=== PATIENT | female | born 1940 | race Caucasian/White ===

== ENCOUNTER 2021-09-10 11:55 | Emergency (ER) | payer MEDICARE, OTHER ==
[~2021-09-10] VITALS: Ht 175.3 cm; Wt 61.0 kg
[2021-09-10 12:01] VITALS: BP 165/100
--- NOTE | 2021-09-10 12:25 | PHYS DOC ---
Past History Past Surgical History: Cholecystectomy Additional Past Surgical Histo: AAA 2011 Alcohol Use: None General Adult EDM: Chief Complaint: MECHANICAL FALL HPI: HPI: 81-year-old female presents with low back pain. The patient had a fall 5 days ago while she was at home. She was standing in the kitchen and she turned around. She found herself falling to the floor and was unable to catch herself. She states that she did not hit anything on the way down. She landed on the fl oor. She was unable to get herself back up. She hit her head on the wall but her headache improved. She continues to have low back soreness and pain and thought she should come in for evaluation. She is not having any numbness, tingling, altered sensation of the lower extremities. Denies fever or chills. She is not on any chronic pain medication. Review of Systems: Review of Systems: Constitutional: Denies fever or chills Eyes: Denies change in visual acuity HENT: Denies nasal congestion or sore throat Respiratory: Denies cough or shortness of breath Cardiovascular: Denies chest pain or edema GI: Denies abdominal pain, nausea, vomiting, bloody stools or diarrhea : Denies dysuria Musculoskeletal: Low back pain Integument: Denies rash Neurologic: Denies headache, focal weakness or sensory changes Endocrine: Denies polyuria or polydipsia Lymphatic: Denies swollen glands Psychiatric: Denies depression or anxiety Allergies: Allergies: Allergies Coded Allergies Type Severity Reaction Last Updated Verified Cephalosporins Allergy Unknown 09/10/21 Yes cephalexin Allergy Unknown 09/10/21 Yes Uncoded Allergies Type Severity Reaction Last Updated Verified CODIENE Allergy Unknown 09/10/21 Physical Exam: PE: Constitutional: Well developed, well nourished, no acute distress, non-toxic appearance. [] HENT: Normocephalic, atraumatic, bilateral external ears normal, oropharynx moist, no oral exudates, nose normal. [] Eyes: PERRLA, EOMI, conjunctiva normal, no discharge. [] Neck: Normal range of motion, no tenderness, supple, no stridor. [] Cardiovascular:Heart rate regular rhythm, no murmur [] Lungs & Thorax: Bilateral breath sounds clear to auscultation [] Abdomen: Bowel sounds normal, soft, no tenderness, no masses, no pulsatile masses. [] Skin: Warm, dry, no erythema, no rash. [] Back: Generalized tenderness of the lumbar spine [] Extremities: No tenderness, no cyanosis, no clubbing, ROM intact, no edema. [] Neurologic: Alert and oriented X 3, normal motor function, normal sensory function, no focal deficits noted. [] Psychologic: Affect normal, judgement normal, mood normal. [] Current Patient Data: Vital Signs: Vital Signs Date Time Temp Pulse Resp B/P (MAP) Pulse Ox O2 Delivery O2 Flow Rate FiO2 09/10/21 12:01 98.5 82 165/100 (121) 96 Room Air EKG: EKG: [] Radiology/Procedures: Radiology/Procedures: [] Impressions: EXAM: Lumbar spine, 3 views. HISTORY: Fall. Pain. COMPARISON: None. FINDINGS: 3 views of the lumbar spine are obtained. There is minimal anterolisthesis of L3 on L4. There is degenerative endplate remodeling with disc space narrowing and osteophytosis at L4-L5, and to a lesser extent, L5-S1. There is facet arthropathy at these levels. 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 The excluded aneurysm sac measures approximately 7.8 cm. IMPRESSION: 1. 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 2. No acute osseous finding. 3. 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 Electronically signed by: Romi Lobo MD (09/10/2021 12:58 PM) [id number] DICTATED AND SIGNED BY: ROMI LOBO MD DATE: 09/10/21 1247 CC: CAROL FONG RYAN DO ~MTH0 0 Heart Score: C/O Chest Pain: N/A Risk Factors: Risk Factors: DM, Current or recent (<one month) smoker, HTN, HLP, family history of CAD, obesity. Risk Scores: Score 0 - 3: 2.5% MACE over next 6 weeks - Discharge Home Score 4 - 6: 20.3% MACE over next 6 weeks - Admit for Clinical Observation Score 7 - 10: 72.7% MACE over next 6 weeks - Early Invasive Strategies Course & Med Decision Making: Course & Med Decision Making Pertinent Labs and Imaging studies reviewed. (See chart for details) The patient's lumbar x-rays negative for acute findings. She does have degenerative change L4-L5. This could be some of her pain. I will approve pain medication and recommend follow-up with her primary doctor and consider physical therapy. She is stable for discharge at this time. [] Sandra Disclaimer: Sandra Disclaimer: This electronic medical record was generated, in whole or in part, using a voice recognition dictation system. Departure Departure: Impression: Primary Impression: Low back pain Qualified Codes: M54.50 - Low back pain, unspecified Disposition: HOME / SELF CARE / HOMELESS Condition: STABLE Referrals: CAROL FONG (PCP) Patient Instructions: Degenerative Disk Disease Scripts Hydrocodone/Acetaminophen (Hydrocodone-Acetamin 5-325 mg) 1 Each Tablet 1 EACH PO Q4-6HRS PRN for PAIN, #10 TAB Prov: MOMO MCDONALD DO 09/10/21 MOMO MCDONALD DO Sep 10, 2021 12:25
[2021-09-10] MEDS ORDERED: DULA1.5P SQ (12:29)
[2021-09-10] MEDS ORDERED: OMEP40CA2 PO (12:29)
[2021-09-10] MEDS ORDERED: MAGN400C PO (12:29)
[2021-09-10] MEDS ORDERED: LOPE2CAP PO (12:29)
[2021-09-10] MEDS ORDERED: FERR325C PO (12:29)
[2021-09-10] MEDS ORDERED: HYDR200T71 PO (12:29)
[2021-09-10] MEDS ORDERED: LISI-378 PO (12:29)
[2021-09-10] MEDS ORDERED: METF-154 PO (12:29)
[2021-09-10] MEDS ORDERED: SOLI10TA2 PO (12:29)
[2021-09-10] MEDS ORDERED: CYAN100072 PO (12:29)
[2021-09-10] MEDS ORDERED: MIRT7.5T8 PO (12:29)
[2021-09-10] MEDS ORDERED: ASPI-630 PO (12:29)
[2021-09-10] MEDS ORDERED: [UNRECOGNIZED DRUG - CODE] PO (12:29)
[2021-09-10] MEDS ORDERED: FLUO40CA9 PO (12:29)
--- NOTE | 2021-09-10 13:00 | RAD ---
EXAM: Lumbar spine, 3 views. HISTORY: Fall. Pain. COMPARISON: None. FINDINGS: 3 views of the lumbar spine are obtained. There is minimal anterolisthesis of L3 on L4. The re is degenerative endplate remodeling with disc space narrowing and osteophytosis at L4-L5, and to a lesser extent, L5-S1. There is facet arthropathy at these levels. 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 The excluded aneurysm sac measures approximately 7.8 cm. IMPRESSION: 1. 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 2. No acute osseous finding. 3. 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 Electronically signed by: Romi Lobo MD (09/10/2021 12:58 PM) [id number]
[2021-09-10] MEDS ORDERED: HYDR-2759 PO (13:19)
[2021-09-10] MEDS ORDERED: HYDROcodone/APAP 5/325MG 1 TAB TABLET PO ONE (13:30)
== END 2021-09-10 13:40 | disposition home or self-care (01) ==
LOC: ER 11:55
DX: M54.59 Other low back pain (principal); R51.9 Headache, unspecified; Z90.49 Acquired absence of other specified parts of digestive tract; Z88.1 Allergy status to other antibiotic agents
CPT/HCPCS: 72100; 99284

== ENCOUNTER 2021-09-12 11:31 | Emergency (ER) | payer MEDICARE, OTHER ==
[~2021-09-12] VITALS: Ht 175.3 cm; Wt 61.0 kg
[~2021-09-12 11:31] MED LIST: ASPI-630 PO; CYAN100072 PO; DULA1.5P SQ; FERR325C PO; FLUO40CA9 PO; HYDR-2759 PO; HYDR200T71 PO; LISI-378 PO; LOPE2CAP PO; MAGN400C PO; METF-154 PO; MIRT7.5T8 PO; OMEP40CA2 PO; SOLI10TA2 PO; [UNRECOGNIZED DRUG - CODE] PO
--- NOTE | 2021-09-12 12:48 | PHYS DOC ---
Past History Past Surgical History: Cholecystectomy Additional Past Surgical Histo: AAA 2011 (MARTHA ZENDEJAS APRN) Alcohol Use: None (MARTHA ZENDEJAS APRN) General Adult EDM: Chief Complaint: BACK PAIN OR INJURY HPI: HPI: Patient is a 81-year-old female who presents with lower back pain after a fall 1 week ago. Patient was seen in the emergency room on 09/10 and had imaging of her lower back. Images at that time were negative. Patient is stating that she is unable to get the pain under control at home and having trouble ambulating. Patient did take a hydrocodone 30 minutes prior to arrival and is denying pain at this time. No urinary retention or loss of bowel, no saddle anesthesia. Patient denies pain has gotten worse but has not improved. No other obvious injuries or complaints of pain. (MARTHA ZENDEJAS APRN) Review of Systems: Review of Systems: Constitutional: Denies fever or chills Eyes: Denies change in visual acuity HENT: Denies nasal congestion or sore throat Respiratory: Denies cough or shortness of breath Cardiovascular: Denies chest pain or edema GI: Denies abdominal pain, nausea, vomiting, bloody stools or diarrhea : Denies dysuria Musculoskeletal: Denies back pain or joint pain Integument: Denies rash Neurologic: Denies headache, focal weakness or sensory changes Endocrine: Denies polyuria or polydipsia Lymphatic: Denies swollen glands Psychiatric: Denies depression or anxiety (MARTHA ZENDEJAS APRN) Allergies: Allergies: Allergies Coded Allergies Type Severity Reaction Last Updated Verified Cephalosporins Allergy Unknown 09/10/21 Yes cephalexin Allergy Unknown 09/10/21 Yes codeine Allergy Unknown 09/10/21 Yes (MARTHA ZENDEJAS APRN) Physical Exam: PE: Constitutional: Well developed, well nourished, no acute distress, non-toxic appearance. [] HENT: Normocephalic, atraumatic, bilateral external ears normal, oropharynx moist, no oral exudates, nose normal. [] Eyes: PERRLA, EOMI, conjunctiva normal, no discharge. [] Neck: Normal range of motion, no tenderness, supple, no stridor. [] Cardiovascular:Heart rate regular rhythm, no murmur [] Lungs & Thorax: Bilateral breath sounds clear to auscultation [] Abdomen: Bowel sounds normal, soft, no tenderness, no masses, no pulsatile masses. [] Skin: Warm, dry, no erythema, no rash. [] Back: Lumbar tendernessleft side, no CVA tenderness. [] Extremities: No tenderness, no cyanosis, no clubbing, ROM intact, no edema. [] Neurologic: Alert and oriented X 3, normal motor function, normal sensory function, no focal deficits noted. [] (MARTHA ZENDEJAS APRN) Current Patient Data: Vital Signs: Vital Signs Date Time Temp Pulse Resp B/P (MAP) Pulse Ox O2 Delivery O2 Flow Rate FiO2 09/12/21 11:33 86 22 168/82 (110) 94 Room Air (MARTHA ZENDEJAS APRN) EKG: EKG: [] (MARTHA ZENDEJAS APRN) Radiology/Procedures: Radiology/Procedures: []EXAM: CT lumbar spine without IV contrast CLINICAL HISTORY:Reason: fall / Spl. Instructions: / History: COMPARISON: Lumbar spine radiograph from 09/10/2021. TECHNIQUE: Helical CT was performed through the lumbar spine. Axial, coronal and sagittal reformatted images were generated. PQRS compliance statement - One or more of the following individualized dose reduction techniques were utilized for this study: 1. Automated exposure control 2. Adjustment of the mA and/or kV according to patient size 3. Use of iterative reconstruction technique FINDINGS: Diffuse osteopenia degrading evaluation for nondisplaced fractures.. There is a age-indeterminate compression fracture of the T12 vertebral body with associated lucencies seen along the superior endplates, consistent with a acute on chronic component with 20 %vertebral body height loss. Remainder of the vertebral body heights are preserved. There is minimal anterolisthesis of L3 on L4. Redemonstrated degenerative endplate remodeling and disc space narrowing and osteophytosis most pronounced at the L4-L5 level. There is mild to moderate bilateral facet arthrosis throughout the lumbar spine as well. No high-grade central or neural foraminal narrowing is appreciated on this noncontrast exam. There is a minimally displaced fracture of the right L5 transverse process. There are bilateral sacral sufficiency fractures predominantly involving zone 2 with a transverse component at the S1-S2 level. There is a soft tissue attenuating fullness in the area of the right adrenal gland with interspersed peripheral calcifications. This may represent an age indeterminate right adrenal hemorrhage and/or postoperative seroma. 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 Remainder of the retroperitoneal structures appear unremarkable. IMPRESSION: 1. Patient is diffusely osteopenic degrading evaluation of nondisplaced fractures. There is a acute on chronic compression fracture involving the T12 vertebral body with less than 20% vertebral body height loss. In the setting of diffuse osteopenia further evaluation with MRI is recommended to evaluate for additional fractures. 2. Bilateral sacral insufficiency fractures predominantly in zone 2 with a transverse component at the S1-S2 level. 3.Mildly displaced right L5 transverse process fracture. 4. Indeterminate peripherally calcified soft tissue attenuating fullness in the area of the right adrenal gland. This may represent an age-indeterminate right adrenal hemorrhage versus postoperative seroma. Further characterization on follow-up CT or MRI with IV contrast is recommended. 5. 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 These findings were discussed with Dr. Centeno at 09/12/2021 1:54 PM (MARTHA ZENDEJAS APRN) Heart Score: C/O Chest Pain: No Risk Factors: Risk Factors: DM, Current or recent (<one month) smoker, HTN, HLP, family history of CAD, obesity. Risk Scores: Score 0 - 3: 2.5% MACE over next 6 weeks - Discharge Home Score 4 - 6: 20.3% MACE over next 6 weeks - Admit for Clinical Observation Score 7 - 10: 72.7% MACE over next 6 weeks - Early Invasive Strategies (MARTHA ZENDEJAS APRN) Course & Med Decision Making: Course & Med Decision Making Pertinent Labs and Imaging studies reviewed. (See chart for details) [] 81-year-old female presents with lower back pain after a fall 1 week ago. No cauda equina symptoms. Patient denies pain has gotten worse is just has not resolved. Patient states she is unable to ambulate without an increase in pain and does not feel the pain medication is working well. Patient did take hydrocodone 30 minutes prior to arrival and states that she has no pain at this time. Patient was seen on 09/10 and had a lumbar x-ray at that time. No acute abnormalities were found. CT of lumbar ordered to rule out acute abnormality. Patient is reporting intermittent, urinary retention. Bladder scan performed which showed 300 mls. Patient was straight cathed to obtain urine sample. CT was concerning for T12 fracture. CT shows acute on chronic compression fracture involving the T12. Consulted neurosurgery regarding patient's symptoms and CT results. JOHNSON Larsen with neurosurgery spoke with Dr. Morales who is suggesting an MRI be done today at [facility]. (MARTHA ZENDEJAS APRN) Course & Med Decision Making I was the Attending physician on the above date of service of this patient. I discussed need for further diagnostic imaging in consultation with specialist given imaging findings and urinary issues which are new findings for patient. I agree to plan of care as recommended by neurosurgeon for hospital transfer for MRI and further specialist consultation and intervention as indicated Critical Care Time This patient required critical care. Due to the fact that the patient required a significant amount of one on one physician - patient contact time, ordering and review of studies, arranging urgent treatment with development of a management plan, evaluation of patients response to treatment with frequent reassessments, and discussions with other providers this patient required 35 minutes of critical care time. Critical care time was indicated due to the inherent instability and/or potential for instability in this patient. The critical care time that is allocated to this patient is above and beyond any time spent on any other billable procedures performed on this patient. Electronically signed, Te Centeno DO (TE CENTENO DO) Sandra Disclaimer: Sandra Disclaimer: This electronic medical record was generated, in whole or in part, using a voice recognition dictation system. (MARTHA ZENDEJAS APRN) Departure Departure: Impression: Primary Impression: Fall Qualified Codes: W19.XXXA - Unspecified fall, initial encounter Disposition: 02 SHORT TERM HOSPITAL Condition: STABLE Referrals: CAROL FONG (PCP) MARTHA ZENDEJAS APRN Sep 12, 2021 12:47 TE CENTENO DO Sep 16, 2021 06:27
--- NOTE | 2021-09-12 14:09 | RAD ---
EXAM: CT lumbar spine without IV contrast CLINICAL HISTORY:Reason: fall / Spl. Instructions: / History: COMPARISON: Lumbar spine radiograph from 09/10/2021. TECHNIQUE: Helical CT was performed through the lumbar spine. Axial, coronal and sagittal reformatted images were generated. PQRS compliance statement - One or more of the following individualized dose reduction techniques wer e utilized for this study: 1. Automated exposure control 2. Adjustment of the mA and/or kV according to patient size 3. Use of iterative reconstruction technique FINDINGS: Diffuse osteopenia degrading evaluation for nondisplaced fractures.. There is a age-indeterminate com pression fracture of the T12 vertebral body with associated lucencies seen along the superior endplat es, consistent with a acute on chronic component with 20 %vertebral body height loss. Remainder of th e vertebral body heights are preserved. There is minimal anterolisthesis of L3 on L4. Redemonstrated degenerative endplate remodeling and disc space narrowing and osteophytosis most pronounced at the L4 -L5 level. There is mild to moderate bilateral facet arthrosis throughout the lumbar spine as well. N o high-grade central or neural foraminal narrowing is appreciated on this noncontrast exam. There is a minimally displaced fracture of the right L5 transverse process. There are bilateral sacra l sufficiency fractures predominantly involving zone 2 with a transverse component at the S1-S2 level . There is a soft tissue attenuating fullness in the area of the right adrenal gland with interspersed peripheral calcifications. This may represent an age indeterminate right adrenal hemorrhage and/or po stoperative seroma. 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 Remainder of the retroperitoneal structures appear unremarkable. IMPRESSION: 1. Patient is diffusely osteopenic degrading evaluation of nondisplaced fractures. There is a acute o n chronic compression fracture involving the T12 vertebral body with less than 20% vertebral body hei ght loss. In the setting of diffuse osteopenia further evaluation with MRI is recommended to evaluate for additional fractures. 2. Bilateral sacral insufficiency fractures predominantly in zone 2 with a transverse component at th e S1-S2 level. 3.Mildly displaced right L5 transverse process fracture. 4. Indeterminate peripherally calcified soft tissue attenuating fullness in the area of the right adr enal gland. This may represent an age-indeterminate right adrenal hemorrhage versus postoperative ser kinjal. Further characterization on follow-up CT or MRI with IV contrast is recommended. 5. 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 These findings were discussed with Dr. Kidd at 09/12/2021 1:54 PM Electronically signed by: Robi Aguillon DO (09/12/2021 2:06 PM) [facility]
[2021-09-12 14:16] LABS: BACTERIA,URINE 0 /HPF (0-FEW); CLARITY,URINE CLEAR; COLOR,URINE YELLOW; GLUCOSE,URINE NEG (NEG); NITRITE,URINE NEG (NEG); SQUAMOUS EPITHELIAL CELL,UR MOD /LPF; UROBILINOGEN,URINE 0.2 mg/dL (0.2 mg/dL)
[2021-09-12] MEDS ORDERED: MORPHINE SULFATE 4 MG/ML DISP.SYRIN. IV ONE ×3 (15:45→20:15)
[2021-09-12 16:47] LABS: BASO # 0.1 x10^3/uL (0.0-0.2); BASO % 1 % (0-3); EOS # 0.3 x10^3/uL (0.0-0.7); EOS % 4 % (0-3); HEMATOCRIT 27.2 % (36.0-47.0); HEMOGLOBIN 8.6 g/dL (12.0-15.5); LYMPH # 0.8 x10^3/uL (1.0-4.8); LYMPH % 12 % (24-48); MEAN CORPUSCULAR HEMOGLOBIN 26 pg (25-35); MEAN CORPUSCULAR HGB CONC 32 g/dL (31-37); MEAN CORPUSCULAR VOLUME 81 fL (79-100); MONO # 0.5 x10^3/uL (0.0-1.1); MONO % 8 % (0-9); NEUT # 5.1 x10^3uL (1.8-7.7); NEUT % 75 % (31-73); PLATELET COUNT 337 x10^3/uL (140-400); RED BLOOD COUNT 3.37 x10^6/uL (3.50-5.40); RED CELL DISTRIBUTION WIDTH 15.1 % (11.5-14.5); WHITE BLOOD COUNT 6.7 x10^3/uL (4.0-11.0)
[2021-09-12 16:56] LABS: CALCIUM 8.4 mg/dL (8.5-10.1); CREATININE 1.3 mg/dL (0.6-1.0); GFR 39.5; POTASSIUM 3.4 mmol/L (3.5-5.1)
[2021-09-12 17:02] LABS: ALBUMIN 2.7 g/dL (3.4-5.0); ALBUMIN/GLOBULIN RATIO 0.7 (1.0-1.7); TOTAL BILIRUBIN 0.2 mg/dL (0.2-1.0); TOTAL PROTEIN 6.4 g/dL (6.4-8.2)
[2021-09-12 20:30] VITALS: BP 180/84
--- NOTE | 2021-09-12 20:46 | RAD ---
Exam: CT head and cervical spine INDICATION: Fall, headache and neck TECHNIQUE: Sequential axial images through the head and cervical spine were obtained without the admi nistration of IV contrast. Exposure: One or more of the following in the visualized dose reduction techniques were utilized for this examination: 1. Automated exposure control 2. Adjustment of the MA and/or KV according to patient size 3. Use of iterative of reconstructive technique Comparisons: None FINDINGS: Head: No focal parenchymal lesion or hemorrhage is identified. There is no midline shift or sulcal effaceme nt. Moderate patchy hypodensity in the periventricular white matter. No acute vascular territory infarcti on is identified. Peterson-white distinction is preserved. The ventricular system is within normal limits without compression hydrocephalus. The basal cisterns are well maintained. The visualized portions of the paranasal sinuses and mastoid air cells are well-pneumatized. No acute fractures. Cervical spine: Vertebral body heights and alignment are well-maintained. Fracture to the cervical spine is not identified. Multilevel spondylotic change in cervical spine with degenerative disc disease greatest at C5-C6 and C6-C7. Mild bilateral facet arthropathy is noted throughout cervical spine. Visualized paraspinal soft tissues are unremarkable. IMPRESSION: 1. Moderate small vessel ischemic change, technically age indeterminate without recent prior imaging . 2. Negative CT C-spine for acute traumatic injury. Electronically signed by: Mirna Ascencio MD (09/12/2021 8:44 PM) [facility]
--- NOTE | 2021-09-12 20:53 | RAD ---
CT thoracic spine without contrast History: Reason: FALL, severe upper back pain / Spl. Instructions: / History: Axial helical images of the thoracic spine were obtained without contrast. Axial, coronal and sagitta l reconstruction was performed. Findings: The vertebral bodies are aligned. There is mild loss of stature of T12 due to impaction of the superi or endplate. Minimal retropulsion of superior endplate is seen without significant central stenosis. There is kyphosis of the mid and upper thoracic spine. Evaluation of the central canal is limited without contrast. There is no evidence of significant cent ral or neuroforaminal stenosis. Impression: Acute T12 vertebral body compression fracture. End of impression PQRS Compliance Statement: One or more of the following individualized dose reduction techniques were utilized for this examinat ion: 1. Automated exposure control 2. Adjustment of the mA and/or kV according to patient size 3. Use of iterative reconstruction technique Electronically signed by: Murtaza Cook III, MD (09/12/2021 8:50 PM) [facility]
== END 2021-09-12 20:36 | disposition short-term general hospital (02) ==
LOC: ER 11:31
DX: M54.59 Other low back pain (principal); Z20.822 Contact with and (suspected) exposure to COVID-19; Z90.49 Acquired absence of other specified parts of digestive tract; Z88.1 Allergy status to other antibiotic agents; Z88.5 Allergy status to narcotic agent; W18.39XA Other fall on same level, initial encounter; Y93.89 Activity, other specified; Y92.89 Other specified places as the place of occurrence of the external cause; Y99.8 Other external cause status
CPT/HCPCS: 70450; 72125; 72128; 72131; 80053; 81001; 82947; 85025; 87426; 96374; 96376; 99285; C9803; J2270; P9612; U0003